=== PATIENT | female | born 1940 | race Caucasian/White ===

== ENCOUNTER → 2018-01-03 12:12 | Outpatient (CLI) | payer MEDICARE, OTHER ==
[2015-04-20 12:15] VITALS: BMI 24.7
[~2018-01-03 12:12] MED LIST: ASPIRIN81 MG PO; BRILINTA90 MG PO; BUMETANIDE0.5 MG PO; COREG6.25 MG PO; DULCOLAX10 MG/SUPP RC; DULCOLAX5 MG PO; GLUCOPHAGE500 MG PO; GLUCOTROL 5 MG T5 MG PO; K-DUR20 MEQ PO; LISINOPRIL10 MG PO; MIRALAX17 GM PO; OXYCODONE HCL5 MG PO; PRAVACHOL20 MG PO; SENOKOT-S TABLE1 TAB PO; THERAGRAN M [BK1 TAB PO; VITAMIN C250 MG PO; ZANAFLEX4 MG PO
== END | disposition home or self-care (01) ==
LOC: D.LABREF 12:12
DX: M79.672 Pain in left foot (principal)